=== PATIENT | female | born 1950 | race Caucasian/White ===

== ENCOUNTER 2016-05-28 16:39 | Inpatient (IN) | payer OTHER ==
[~2016-05-28] VITALS: Ht 147.3 cm; Wt 41.0 kg
[~2016-05-28 16:39] MED LIST: ACET1TAB40 PO; ALEN70TA30 PO; CEPH-443 PO; SERT25TA83 PO; TRAM50TA2 PO
[2016-05-28 16:42] VITALS: Ht 147.3 cm; Wt 41.0 kg
[2016-05-28] MEDS ORDERED: SOD CHLORIDE 0.9% 500 ML IV STA (18:16)
--- NOTE | 2016-05-28 18:49 | RADRPT ---
PROCEDURE: XR Chest. CLINICAL INDICATION: Chest pain and possible stroke TECHNIQUE: AP Portable chest. COMPARISON: None available FINDINGS: The soft tissues and bones are normal. No focal infiltrates, masses, or effusions are noted. Hyper inflation is present and correlate with reactive airway disease or evidence for obstructive pulmonar y disease. The mediastinum and heart are normal. No pneumothorax is present. IMPRESSION: 1. No radiographic evidence for acute cardiopulmonary disease 2. Hyperinflation and correlate with reactive airway disease or obstructive pulmonary disease. RPTAT: HDC .Lisa Morales MD, MD Date Time Electronically viewed and signed by .Lisa Morales MD, MD on 05/28/2016 18:49 .C/
[2016-05-28 19:09] LABS: ADD UMIC YES; URINE BILIRUBIN (Dip) NEGATIVE (NEGATIVE); URINE BLOOD (Dip) 2+ (NEGATIVE); URINE GLUCOSE (Dip) NEGATIVE (NEGATIVE); URINE KETONES (Dip) NEGATIVE (NEGATIVE); URINE LEUKOCYTE ESTERASE (Dip) TRACE (NEGATIVE); URINE NITRITE (Dip) NEGATIVE (NEGATIVE); URINE TOTAL PROTEIN (Dip) NEGATIVE (NEGATIVE); URINE UROBILINOGEN (Dip) 0.2 E.U./dL (0.1-1.0)
[2016-05-28 19:10] LABS: BASOPHIL # 0.1 10^3/ul (0.0-0.1); EOSINOPHILS # 0.1 10^3/ul (0.0-0.5); EOSINOPHILS % 1.4 % (0.0-7.0); HEMATOCRIT 36.6 % (37.0-47.0); HEMOGLOBIN 12.5 g/dl (12.0-16.0); LYMPHOCYTES # 2.9 10^3/ul (0.8-2.9); LYMPHOCYTES % 42.8 % (15.0-51.0); MEAN CORPUSCULAR HEMOGLOBIN 31.2 pg (29.0-33.0); MEAN CORPUSCULAR HGB CONC 34.3 g/dl (32.0-37.0); MEAN CORPUSCULAR VOLUME 91.1 fl (82.0-101.0); MEAN PLATELET VOLUME 7.2 fl (7.4-10.4); MONOCYTE # 0.8 10^3/ul (0.3-0.9); MONOCYTES % 11.8 % (0.0-11.0); NEUTROPHIL # 2.9 10^3/ul (1.6-7.5); PLATELET COUNT 333 10^3/UL (140-440); RED BLOOD COUNT 4.02 10^6/ul (4.20-5.40); RED CELL DISTRIBUTION WIDTH 13.4 % (11.5-14.5); UNCORRECTED WBC 6.7 10^3/ul (4.8-10.8); WHITE BLOOD COUNT 6.7 10^3/ul (4.8-10.8)
--- NOTE | 2016-05-28 19:14 | ERA ---
ER Documentation Chief Complaint Date/Time DATE: 05/28/16 TIME: 19:12 Chief Complaint ROTH X 3 DAYS HPI 65-year-old female who presents the emergency room with a headache. The patient describes headache for approximately 48 hours. The patient states that she was in her car 2 days ago. She had a sudden onset of severe headache that was bandlike through the majority of her head. She noted at that time complete loss of vision to bilateral eyes. She also had some nausea. She thinks that she may have passed out because she lost a filling. She denies any incontinence. She denies any postictal state. She now has persistent headache that is 4-10 currently. She was seen by her primary care physician who sent her to the emergency room. She denies any chest pain or neck pain, no fevers or chills, no rash, no jaw claudication. She still describes some haziness to her vision but denies any persistent vision loss. ROS All systems reviewed and are negative except as per history of present illness. Medications Home Meds Active Scripts Acetaminophen-Codeine* (Acetaminophen-Cod #3*) 300-30 Mg Tab, 1 TAB PO Q4H Y for PAIN, #14 TAB Prov:KYLIE DE JESUS MD 12/15/15 Cephalexin* (Keflex*) 500 Mg Capsule, 500 MG PO QID for 5 Days, CAP Prov:KYLIE DE JESUS MD 12/15/15 Reported Medications Alendronate Sodium* (Fosamax*) 70 Mg Tablet, 70 MG PO WEEKLY, #4 08/08/15 Sertraline Hcl* (Sertraline Hcl*) 25 Mg Tablet, 25 MG PO DAILY, #30 08/08/15 Tramadol HCl (Tramadol HCl) 50 Mg Tablet, 50 MG PO BID, #60 08/08/15 Allergies Allergies: Coded Allergies: Penicillins (Verified Allergy, Unknown, 08/07/15) PMhx/Soc Medical and Surgical Hx: pt denies Medical Hx History of Surgery: Yes (CSECTION X 4) Anesthesia Reaction: No Hx Neurological Disorder: No Hx Respiratory Disorders: No Hx Cardiac Disorders: No Hx Psychiatric Problems: No Hx Miscellaneous Medical Probl: No Hx Alcohol Use: No Hx Substance Use: No Hx Tobacco Use: No Physical Exam Vitals Vital Signs Date Time Temp Pulse Resp B/P Pulse Ox O2 Delivery O2 Flow Rate FiO2 1/13/17 21:10 98.7 83 20 183/82 97 Room Air 05/28/16 16:42 98.1 67 18 159/66 99 Physical Exam General: Well developed, well nourished, no acute distress Head: Normocephalic, atraumatic. Eyes: Pupils equally reactive, EOM intact, no field cuts ENT: Moist mucous membranes Neck: Supple, no lymphadenopathy Respiratory: Lungs clear bilaterally, no distress Cardiovascular: RRR, no murmurs, rubs, or gallops Abdominal: Soft, non-tender, non-distended, no peritoneal signs : Deferred MSK: No edema, no unilateral swelling, 5/5 strength Neurologic: Alert and oriented, moving all extremities, normal speech, no focal weakness, no cerebellar signs, no meningismus, normal rapid alternating movements Skin: No rash Psych: Normal mood Result Diagram: 05/28/165 05/28/16 185 Results 24 hrs Laboratory Tests Test 05/28/16 18:55 05/28/16 19:02 Activated Partial Thromboplast Time 32.5Sec Anion Gap 17 Basophils # 0.110^3/ul Basophils % 1.0% Blood Morphology Comment Blood Urea Nitrogen 19mg/dl Calcium Level 9.2mg/dl Carbon Dioxide Level 29mmol/L Chloride Level 100mmol/L Creatinine 0.92mg/dl Eosinophils # 0.110^3/ul Eosinophils % 1.4% Erythrocyte Sedimentation Rate 27mm/Hr Glucose Level 86mg/dl Hematocrit 36.6% Hemoglobin 12.5g/dl Hemoglobin A1c 5.2% INR International Normalized Ratio 0.99 Lymphocytes # 2.910^3/ul Lymphocytes % 42.8% Mean Corpuscular Hemoglobin 31.2pg Mean Corpuscular Hemoglobin Concent 34.3g/dl Mean Corpuscular Volume 91.1fl Mean Platelet Volume 7.2fl Monocytes # 0.810^3/ul Monocytes % 11.8% Neutrophils # 2.910^3/ul Neutrophils % 43.0% Nucleated Red Blood Cells # 0.010^3/ul Nucleated Red Blood Cells % 0.0/100WBC Platelet Count 27037^3/UL Potassium Level 3.7mmol/L Prothrombin Time 13.1Sec Prothrombin Time Ratio 1.0 Red Blood Count 4.0210^6/ul Red Cell Distribution Width 13.4% Sodium Level 142mmol/L Troponin I < 0.012ng/ml Urine Amphetamines Screen Negative Urine Bacteria FEW Urine Barbiturates Negative Urine Benzodiazepines Screen Negative Urine Bilirubin NEGATIVE Urine Cannabinoids Negative Urine Clarity HAZY Urine Cocaine Screen Negative Urine Color YELLOW Urine Glucose NEGATIVE% Urine Hemoglobin 2+ Urine Ketones NEGATIVE Urine Leukocyte Esterase TRACE Urine Microscopic RBC 25-50/HPF Urine Microscopic WBC 5-10/HPF Urine Mucus MANY Urine Nitrite NEGATIVE Urine Opiates Screen Negative Urine Specific [place] >=1.030 Urine Squamous Epithelial Cells FEW Urine Total Protein NEGATIVE Urine Urobilinogen 0.2 E.U./dL Urine pH 5.5 White Blood Count 6.710^3/ul Bedside Glucose 90mg/dL Current Medications Medications (Trade) Dose Ordered Sig/Sabine Route PRN Reason Start Time Stop Time Status Last Admin Dose Admin Sodium Chloride (NS) 500 ml @ 500 mls/hr Q1H STAT IV 05/28/16 18:16 05/28/16 19:15 DC 05/28/16 18:59 Morphine Sulfate (morphine) 4 mg ONCE STAT IV 05/28/16 19:17 05/28/16 19:18 DC 05/28/16 19:33 Ondansetron HCl (Zofran Inj) 4 mg ONCE STAT IV 05/28/16 19:17 05/28/16 19:18 DC 05/28/16 19:33 IV Flush 10 ml 10 ml STK-MED ONCE .ROUTE 05/28/16 20:01 05/28/16 20:02 DC 05/28/16 20:17 Sodium Chloride 100 ml @ ud STK-MED ONCE .ROUTE 05/28/16 20:01 05/28/16 20:02 DC 05/28/16 20:17 Iohexol (Omnipaque) 100 ml @ ud STK-MED ONCE .ROUTE 05/28/16 20:01 05/28/16 20:02 DC 05/28/16 20:17 Ondansetron HCl (Zofran Inj) 4 mg ER BRIDGE PRN IV NAUSEA AND/OR VOMITING 05/28/16 22:30 05/29/16 22:29 Acetaminophen 650 mg 650 mg ER BRIDGE PRN PO MILD PAIN/FEVER 05/28/16 22:30 05/29/16 22:29 Sodium Chloride (NS) 1,000 ml @ 75 mls/hr [id number] IV 05/28/16 22:07 UNV IV Flush (NS 3 ml) 3 ml PER PROTOCOL IV 05/28/16 22:30 UNV Lorazepam (Ativan) 0.5 mg Q6H PRN IV ANXIETY 05/28/16 22:30 UNV Ondansetron HCl (Zofran Inj) 4 mg Q6H PRN IV NAUSEA AND/OR VOMITING 05/28/16 22:30 UNV Nitroglycerin (Nitroglycerin (Sl Tab) 0.4 Mg) 1 tab Q5M PRN SL CHEST PAIN 05/28/16 22:30 UNV Acetaminophen (Tylenol Tab) 650 mg Q6H PRN PO PAIN LEVEL 1-3 OR FEVER 05/28/16 22:30 UNV Morphine Sulfate (morphine) 2 mg Q4H PRN IV PAIN LEVEL 7-10 05/28/16 22:30 UNV Docusate Sodium (Colace) 100 mg Q12H PRN PO CONSTIPATION 05/28/16 22:30 UNV Famotidine (Pepcid Iv) 20 mg Q12 IV 05/29/16 09:00 UNV Alendronate Sodium (Fosamax) 70 mg Q7D PO 05/28/16 22:30 UNV Sertraline HCl (Zoloft) 25 mg DAILY PO 05/29/16 09:00 UNV Hydralazine HCl (Apresoline) 10 mg Q6H PRN IV sbp > 160 05/28/16 22:30 UNV Labetalol HCl (Labetalol) 10 mg Q6H PRN IV sbp > 160 05/28/16 22:30 UNV Procedures/MDM EKG, MONITORS, & DIAGNOSTIC IMAGING: EKG: I reviewed and interpreted a 12-lead EKG. Rhythm: Normal sinus rhythm Ectopy: None Intervals: No abnormalities ST segments: No elevations or depressions T waves: No contiguous inversions Chest x-ray: I reviewed and interpreted a 1 view of the chest Mediastinum: No enlargement Cardiac silhouette: No cardiomegaly Airspace: Clear lung luevano bilaterally without evidence of pneumothorax Bones: No evidence of fracture CT brain: No acute intracranial process CTA head and neck: No aneurysm or dissection PROCEDURES: Lumbar Puncture Note: Indication: Rule out subarachnoid hemorrhage Needle: 18-gauge Position: Left lateral decubitus Location: L2/3 space Number of attempts: 1 CSF volume: 6 cc Bedside informed consent was provided to the patient describing the risks, benefits, alternatives of the procedure. This includes infection, bleeding, headache. The patient provided verbal consent a document was signed and placed in the chart. Sterile procedure was observed during the entire course of the procedure. The patient was placed in the position noted above and a needle was inserted into the space noted above. There was return of clear, non-cloudy cerebrospinal fluid. The needle was then removed intact. The patient tolerated the procedure well and there were no complications. A clean sterile bandage was applied to the lumbar puncture site. LAB INTERPRETATION: No leukocytosis, no evidence of electrolyte disturbance MEDICAL DECISION MAKING: The patient's headache has concerning elements including sudden onset, vision loss and possible syncope. These constellation of symptoms could represent subarachnoid hemorrhage versus stroke. The patient will benefit from CT imaging of the brain, CTA of the head and neck. I would also consider possible lumbar puncture given the patient's concerning story if these imaging tests are unrevealing. The patient will benefit from IV fluids and pain control medication. The patient's symptoms do not seem to be consistent with giant cell arteritis given sudden onset of symptoms, no jaw claudication. Vision loss seemed to be transient. ESR will be sent. ER COURSE: The patient's headache is improved with pain medication and laboratory testing. ESR is negative. CT imaging of the head and vessels are also negative. The patient's pain has improved. Her blood pressure has also remained stable. I had a prolonged conversation regarding lumbar puncture and the risks of subarachnoid hemorrhage. I used an assistant clinical nurse manager. We decided to perform a lumbar puncture as this is the gold standard despite the normal CT and CTA. The patient's CSF studies are pending at this time but the CSF was clear and non -cloudy. This is not consistent with subarachnoid hemorrhage. The patient will be admitted for MRI imaging given possibility of TIA, vision loss and headache. Also consider possible PRES versus hypertensive urgency. I kept the patient and/or family informed of laboratory and diagnostic imaging results throughout the emergency room course. DISPOSITION PLAN: Telemetry admission CONSULTATION: Accepting care team and consultations: I discussed the current laboratory data, diagnostic imaging and emergency care provided. Admitting team: Dr. Dawson Admitting team indication: Insurance directed CSF studies pending and to be followed by admitting team. Departure Diagnosis: Primary Impression: Headache Qualified Code: R51 - Acute intractable headache, unspecified headache type Additional Impression: Hypertensive urgency Condition: Stable DAMIAN GRUBBS MD May 28, 2016 19:14
[2016-05-28 19:16] LABS: CHLORIDE 100 mmol/L (97-110); INR 0.99; POTASSIUM 3.7 mmol/L (3.5-5.1); PROTIME 13.1 Sec (12.2-14.2); SODIUM 142 mmol/L (135-144)
[2016-05-28 19:17] LABS: CONDITION 1; PARTIAL THROMBOPLASTIN TIME 32.5 Sec (25.0-35.0)
[2016-05-28] MEDS ORDERED: morphine 4 MG/ML VIAL IV STA (19:17)
[2016-05-28] MEDS ORDERED: ONDANSETRON 4 MG INJ IV STA (19:17)
[2016-05-28 19:18] LABS: CREATININE 0.92 mg/dl (0.44-1.00)
[2016-05-28 19:19] LABS: ANION GAP 17 (8-16); BLOOD UREA NITROGEN 19 mg/dl (7-20); CALCIUM 9.2 mg/dl (8.4-10.2); CARBON DIOXIDE 29 mmol/L (21-31); GLUCOSE 86 mg/dl (70-220)
[2016-05-28 19:38] LABS: URINE COLOR YELLOW (YELLOW)
[2016-05-28 19:42] LABS: BACTERIA,URINE FEW; MUCUS,URINE MANY; SQUAMOUS EPITHELIAL CELL,UR FEW; TROPONIN-I < 0.012 ng/ml (0.00-0.12); URINE RBCS 25-50 /HPF (0)
[2016-05-28 19:59] LABS: BARBITURATES Negative (NEGATIVE)
[2016-05-28 20:00] LABS: CANNABINOIDS Negative (NEGATIVE)
[2016-05-28] MEDS ORDERED: SOD CHLORIDE 0.9% 100 ML ONE (20:01)
[2016-05-28] MEDS ORDERED: IOHEXOL 100 ML ONE (20:01)
[2016-05-28 20:05] LABS: BENZODIAZEPINES Negative (NEGATIVE); COCAINE Negative (NEGATIVE); OPIATES Negative (NEGATIVE)
--- NOTE | 2016-05-28 20:17 | RADRPT ---
PROCEDURE: CT brain without IV contrast. CLINICAL INDICATION: Weakness. TECHNIQUE: CT examination of the brain was performed on a 64-slice multidetector scanner. The pat ient was examined without IV contrast. Sagittal and coronal reformatted images were made. The imag es were reviewed on a PACS workstation. Radiation dose: Total CTDIvol: 45 mGY. Total DLP: 720 mGy-cm. COMPARISON: None available. FINDINGS: The ventricles and cerebral sulci are normal in size and morphology for this patient's age. The gra y/white matter differentiation is well preserved. There is no other abnormal intra-axial high, low density lesion, suggesting tumor, infarct , bleeding, av malformation or inflammatory mass. No subdural or epidural hematoma. The visualized paranasal sinuses and mastoid air cells are clear. The orbits are unremarkable. The calvarium is intact. No scalp abnormalities are seen. IMPRESSION: 1. Unremarkable CT brain without IV contrast. RPTAT: GG .Luis Carlos Williamson MD, MD Date Time Electronically viewed and signed by .Luis Carlos Williamson MD, on 05/28/2016 20:16 .Y/
--- NOTE | 2016-05-28 20:32 | RADRPT ---
PROCEDURE: CTA Head and Neck. CLINICAL INDICATION: Stroke, focal neurologic deficit TECHNIQUE: Continues axial 0.63 mm sections were obtained through the head and neck with the use o f 80 cc of Omnipaque 350 nonionic intravenous contrast material. Coronal and sagittal as well as ma ximal intensity projection reformations were obtained. 3-D re-formations were performed as well. Th e images were reviewed on a PACS workstation. The calculated radiation dose measures 364 mGy centime ters. The CTDI measures 12 mGy COMPARISON: No prior studies are available for comparison. FINDINGS: NECK: The aortic arch is normal appearance. The origins of the great vessels are intact. The right brachi ocephalic artery is within normal limits. The right common carotid artery is unremarkable. The right carotid bifurcation appears normally pat ent. The remainder of the right internal carotid artery is unremarkable, without focal stenosis or dilatation. The left common carotid artery is unremarkable. The left carotid bifurcation appears normally paten t. The remainder of the left internal carotid artery is unremarkable, without focal stenosis or dil atation. The bilateral vertebral arteries are identified, without stenosis or occlusion. There are facet degenerative changes through the cervical spine. There is a mild to moderate appeari ng disk protrusion at C6-C7, approximately 3 mm HEAD: The petrous right internal carotid artery appears normally patent. The cavernous and supraclinoid r ight internal carotid artery segments appear intact, without focal stenosis or occlusion. The right anterior and middle cerebral arteries are unremarkable. The petrous left internal carotid artery appears normally patent. The cavernous and supraclinoid le ft internal carotid artery segments appear intact, without focal stenosis or occlusion. The left an terior and middle cerebral arteries are unremarkable. The anterior communicating artery is unremarkable. The bilateral posterior communicating arteries a re identified and within normal limits. There is no evidence of aneurysm or vascular malformation i nvolving the anterior circulation. The intracranial vertebral arteries appear unremarkable. The left vertebral artery is mildly domina nt. The basilar artery appears within normal limits. The bilateral anterior inferior and posterior inferior cerebellar arteries appear the patent. The superior cerebellar arteries are unremarkable. Bilateral posterior cerebral arteries are normally patent. There is no aneurysm or vascular malformation involving the posterior circulation.. IMPRESSION: Unremarkable CT angiogram of the head and neck vasculature. No focal stenosis or occlusion is identi fied. Cervical spine degenerative facet changes, and a mild to moderate appearing disk protrusion at C6-C7, approximately 3 mm. Measurements of the cervical internal carotid artery stenosis were peformed according to NASCET jass escobar. RPTAT: HBST .Franklin Buchanan MD, Date Time Electronically viewed and signed by .Franklin Buchanan MD, MD on 05/28/2016 20:31 .T/
--- NOTE | 2016-05-28 20:38 | RADRPT ---
PROCEDURE: CTA Head and Neck. CLINICAL INDICATION: Stroke, focal neurologic deficit TECHNIQUE: Continues axial 0.63 mm sections were obtained through the head and neck with the use of 80 cc of Omnipaque 350 nonionic intravenous contrast material. Coronal and sagittal as well as maxim al intensity projection reformations were obtained. 3-D re-formations were performed as well. The im ages were reviewed on a PACS workstation. The calculated radiation dose measures 364 mGy centimeters . The CTDI measures 12 mGy COMPARISON: No prior studies are available for comparison. FINDINGS: NECK: The aortic arch is normal appearance. The origins of the great vessels are intact. The right brachio cephalic artery is within normal limits. The right common carotid artery is unremarkable. The right carotid bifurcation appears normally zurita nt. The remainder of the right internal carotid artery is unremarkable, without focal stenosis or di latation. The left common carotid artery is unremarkable. The left carotid bifurcation appears normally patent . The remainder of the left internal carotid artery is unremarkable, without focal stenosis or dilat ation. The bilateral vertebral arteries are identified, without stenosis or occlusion. There are facet degenerative changes through the cervical spine. There is a mild to moderate appeari ng disk protrusion at C6-C7, approximately 3 mm HEAD: The petrous right internal carotid artery appears normally patent. The cavernous and supraclinoid ri ght internal carotid artery segments appear intact, without focal stenosis or occlusion. The right a nterior and middle cerebral arteries are unremarkable. The petrous left internal carotid artery appears normally patent. The cavernous and supraclinoid lef t internal carotid artery segments appear intact, without focal stenosis or occlusion. The left ante rior and middle cerebral arteries are unremarkable. The anterior communicating artery is unremarkable. The bilateral posterior communicating arteries ar e identified and within normal limits. There is no evidence of aneurysm or vascular malformation inv olving the anterior circulation. The intracranial vertebral arteries appear unremarkable. The left vertebral artery is mildly dominan t. The basilar artery appears within normal limits. The bilateral anterior inferior and posterior in ferior cerebellar arteries appear the patent. The superior cerebellar arteries are unremarkable. Kai ateral posterior cerebral arteries are normally patent. There is no aneurysm or vascular malformation involving the posterior circulation.. IMPRESSION: Unremarkable CT angiogram of the head and neck vasculature. No focal stenosis or occlusion is identi fied. Cervical spine degenerative facet changes, and a mild to moderate appearing disk protrusion at C6-C7, approximately 3 mm. Measurements of the cervical internal carotid artery stenosis were peformed according to NASCET jass escobar. RPTAT: HBST Call report was made to Dr. Soares .Franklin Buchanan MD, Date Time Electronically viewed and signed by .Franklin Buchanan MD, on 05/28/2016 20:37 .T/
[2016-05-28 21:44] LABS: # OF CELLS COUNTED 100
[2016-05-28] MEDS ORDERED: SOD CHLORIDE 0.9% 1,000 ML IV SCH (22:07)
[2016-05-28 22:11] LABS: GLUCOSE,CSF 41 mg/dl (50-80)
[2016-05-28 22:19] LABS: CSF COLOR COLORLESS; CSF VOLUME 4.6 ml
[2016-05-28 22:23] LABS: %CREANATED RBC CSF 0 %; CSF#TUBES REC'D 4
[2016-05-28 22:24] LABS: CSF#TUBE COUNT TUBE#1
[2016-05-28 22:25] LABS: %CREANATED RBC CSF 0 %; CSF COLOR COLORLESS; CSF VOLUME 4.6 ml; CSF#TUBE COUNT TUBE#4; CSF#TUBES REC'D 4
[2016-05-28] MEDS ORDERED: NITROGLYCERIN (SL) 0.4 MG TAB SL PRN (22:30)
[2016-05-28] MEDS ORDERED: ACETAMINOPHEN 325 MG TAB PO PRN ×2 (22:30)
[2016-05-28] MEDS ORDERED: ONDANSETRON 4 MG INJ IV PRN ×2 (22:30)
[2016-05-28] MEDS ORDERED: ALENDRONATE 70 MG TAB PO SCH (22:30)
[2016-05-28] MEDS ORDERED: LABETALOL HCL 20MG INJ IV PRN (22:30)
[2016-05-28] MEDS ORDERED: NACL 0.9% 3 ML SYG IV SCH (22:30)
[2016-05-28] MEDS ORDERED: DOCUSATE SODIUM 100 MG CAP PO PRN (22:30)
[2016-05-28] MEDS ORDERED: LORAZEPAM 2 MG INJ IV PRN (22:30)
[2016-05-28] MEDS ORDERED: hydrALAzine 20 MG INJ IV PRN (22:30)
--- NOTE | 2016-05-28 23:10 | HP ---
Date/Time of Note Date/Time of Note DATE: 05/28/16 TIME: 22:51 Assessment/Plan VTE Prophylaxis VTE Prophylaxis Intervention: SCD's Lines/Catheters IV [facility]from [facility] Saline [facility] Assessment/Plan Assessment/Plan 65 yo female with a past medical history of questionable hypertension who complains of headache for the past three days. 1. Hypertensive urgency - possible CVA - will admit the patient telemetry, cycle cardiac markers, check TSH/Mag, MRI brain, consult neurology, PT/OT/ST, fall precautions, neurovascular checks 2. GI ppx - pepcid 3. DVT ppx - scds answered all of her questions. as per clinical course. this history and physical took greater then 45 minutes to complete HPI/ROS Admit Date/Time Admit Date/Time 05/28/2016, 10:51 pm Hx of Present Illness 65 yo female with a past medical history of questionable hypertension who complains of headache for the past three days. She states that headache is diffuse, all over her scalp, throbbing, no alleviating or aggravating factors, no aura, or phonophobia/photophobia, but does have some blurriness in vision. She had nausea, no vomiting, 3 episodes of diarrhea non bloody in nature, with fevers/chills, dizziness. Otherwise no sick contacts, recent travel, trauma, loss of consciousness, or other constitutional symptoms. ER course: morphine, IVF ROS 14 point review of systems completed, please refer to HPI for any positive findings PMH/Family/Social Past Medical History Medical History: hypertension Past Surgical History cyst on scalp Family History Significant Family History: vascular disease (CVA father age 74) Social History Alcohol Use: occasionally Smoking Status: Former smoker (1/2 ppd 40 years, quit 1 year ago) Drug Use: none Exam/Review of Systems Vital Signs Vitals Vital Signs Date Time Temp Pulse Resp B/P Pulse Ox O2 Delivery O2 Flow Rate FiO2 05/28/16 21:10 98.7 83 20 183/82 97 Room Air Exam Exam GEN: mild distress 2/2 headache, AAOx4 HEENT: NC/AT, PERRLA, EOMI, no pharyngeal erythema, no tonsillar exudates, no lymphadenopathy, no JVD, no carotid bruits NECK: supple, no thyromegaly THORAX: symmetrical, no obvious deformities CV: S1S2, RRR, no M/G/R Lungs: CTAB no W/C/R/R Abd: soft, NT/ND, +BS, no rebound, no guarding, neg HSM EXT: no edema, no ecchymosis, no clubbing, FROM, +5/5 upper and lower extremities Neuro: CN II-XII grossly intact, no focal deficits, DTR's 2+ equal and symmetrical Psych: good mentation, alert and oriented, good mood and affect Skin: C/D/I Labs Result Diagram: 05/28/16185405/28/161854 Medications Medications Current Medications Sodium Chloride (NS) 1,000 ml @ 75 mls/hr [id number] IV ; Start 05/28/16 at 22:07 Lorazepam (Ativan) 0.5 mg Q6H PRN IV ANXIETY; Start 05/28/16 at 22:30 Ondansetron HCl (Zofran Inj) 4 mg Q6H PRN IV NAUSEA AND/OR VOMITING; Start at 22:30 Nitroglycerin (Nitroglycerin (Sl Tab) 0.4 Mg) 1 tab Q5M PRN SL CHEST PAIN; Start 05/28/16 at 22:30 Acetaminophen (Tylenol Tab) 650 mg Q6H PRN PO PAIN LEVEL 1-3 OR FEVER; Start at 22:30 Morphine Sulfate (morphine) 2 mg Q4H PRN IV PAIN LEVEL 7-10; Start 05/28/16 at 22:30 Docusate Sodium (Colace) 100 mg Q12H PRN PO CONSTIPATION; Start 05/28/16 at 22: 30 Famotidine (Pepcid Iv) 20 mg Q24H IV ; Start 05/29/16 at 09:00 Alendronate Sodium (Fosamax) 70 mg Q7D PO ; Start 05/28/16 at 22:30; Status UNV Sertraline HCl (Zoloft) 25 mg DAILY PO ; Start 05/29/16 at 09:00 Hydralazine HCl (Apresoline) 10 mg Q6H PRN IV sbp > 160; Start 05/28/16 at 22: 30 Labetalol HCl (Labetalol) 10 mg Q6H PRN IV sbp > 160; Start 05/28/16 at 22:[address] brain IMPRESSION: 1. Unremarkable CT brain without IV contrast. CXR IMPRESSION: 1. No radiographic evidence for acute cardiopulmonary disease 2. Hyperinflation and correlate with reactive airway disease or obstructive pulmonary disease. CTA brain IMPRESSION: Unremarkable CT angiogram of the head and neck vasculature. No focal stenosis or occlusion is identified. Cervical spine degenerative facet changes, and a mild to moderate appearing disk protrusion at C6-C7, approximately 3 mm. Measurements of the cervical internal carotid artery stenosis were peformed according to NASCET criteria. Neck CTA IMPRESSION: Unremarkable CT angiogram of the head and neck vasculature. No focal stenosis or occlusion is identified. Cervical spine degenerative facet changes, and a mild to moderate appearing disk protrusion at C6-C7, approximately 3 mm. Measurements of the cervical internal carotid artery stenosis were peformed according to NASCET criteria. ANGUS WORTHY MD May 28, 2016 23:03
[2016-05-28 23:14] LABS: CREATINE KINASE 95 IU/L (23-200)
[2016-05-28 23:15] LABS: MAGNESIUM 1.9 mg/dl (1.7-2.5)
[2016-05-28 23:25] LABS: CK-MB 0.88 ng/ml (0.0-2.4)
[2016-05-28] MEDS: morphine 2 MG INJ IV PRN (23:25)
[2016-05-28 23:29] LABS: TROPONIN-I < 0.010 ng/ml (0.00-0.12)
[2016-05-28 23:47] LABS: THYROID STIMULATING HORMONE 4.3 MIU/L (0.465-4.680)
[2016-05-29 06:17] LABS: BASOPHIL # 0.1 10^3/ul (0.0-0.1); EOSINOPHILS # 0.1 10^3/ul (0.0-0.5); EOSINOPHILS % 1.9 % (0.0-7.0); HEMATOCRIT 34.2 % (37.0-47.0); HEMOGLOBIN 11.5 g/dl (12.0-16.0); LYMPHOCYTES # 2.4 10^3/ul (0.8-2.9); LYMPHOCYTES % 42.8 % (15.0-51.0); MEAN CORPUSCULAR HEMOGLOBIN 30.5 pg (29.0-33.0); MEAN CORPUSCULAR HGB CONC 33.8 g/dl (32.0-37.0); MEAN CORPUSCULAR VOLUME 90.4 fl (82.0-101.0); MEAN PLATELET VOLUME 7.2 fl (7.4-10.4); MONOCYTE # 0.6 10^3/ul (0.3-0.9); MONOCYTES % 11.1 % (0.0-11.0); NEUTROPHIL # 2.4 10^3/ul (1.6-7.5); NEUTROPHILS % 43.2 % (39.0-77.0); PLATELET COUNT 321 10^3/UL (140-440); RED BLOOD COUNT 3.78 10^6/ul (4.20-5.40); RED CELL DISTRIBUTION WIDTH 13.2 % (11.5-14.5); UNCORRECTED WBC 5.6 10^3/ul (4.8-10.8); WHITE BLOOD COUNT 5.6 10^3/ul (4.8-10.8)
[2016-05-29 06:23] LABS: CONDITION 1
[2016-05-29 06:25] LABS: POTASSIUM 4.1 mmol/L (3.5-5.1)
[2016-05-29 06:26] LABS: CREATINE KINASE 84 IU/L (23-200)
[2016-05-29 06:27] LABS: CREATININE 0.8 mg/dl (0.44-1.00)
[2016-05-29 06:28] LABS: CALCIUM 8.3 mg/dl (8.4-10.2)
[2016-05-29 06:35] LABS: CK-MB 0.83 ng/ml (0.0-2.4)
[2016-05-29 06:41] LABS: TROPONIN-I < 0.010 ng/ml (0.00-0.12)
[2016-05-29] MEDS ORDERED: SERTRALINE 50 MG TAB PO SCH (09:00)
[2016-05-29] MEDS ORDERED: FAMOTIDINE 20 MG INJ IV SCH (09:00)
[2016-05-29] MEDS: morphine 2 MG INJ IV PRN (09:03)
--- NOTE | 2016-05-29 13:52 | EN ---
Date/Time of Note Date/Time of Note DATE: 05/29/16 TIME: 13:51 Event Note Medicine Medicine Event Note Stable overnight in ER No headache Vitals stable Exam unremarkable c/o dysuria LP and CT head unremarkable. Probable UTI For cipro f/u PMD 1 week. DAPHNE SOFIA MD, [facility] May 29, 2016 13:52
[2016-05-29] MEDS ORDERED: CIPR500T4 PO (14:02)
--- NOTE | 2016-05-29 14:03 | EN ---
Date/Time of Note Date/Time of Note DATE: 05/29/16 TIME: 14:[address] May, has seen the patient and told me the patient stable for discharge and asked me to print out discharge instructions and a prescription for Cipro for the patient because he does not have a prescription pad I did not see this patient or have any involvement in this patient's care PALOMO AKHTAR DO May 29, 2016 14:03
--- NOTE | 2016-05-29 14:19 | RADRPT ---
Echocardiogram Report Patient Name: HAZEL EGN Gender: Female Date: 1950 Study Date: 29-May-2016 Plastic Sewer: Nas [facility] Location: [facility] Ref. Physician: ANGUS WORTHY Quality: Adequate Procedures: Transthoracic echocardiogram with complete 2D, M-Mode, and doppler examination. Indications: Cerebrovascular Accident. 2D/M Mode Doppler Measurement Value Normal Ranges Measurement Value Normal Ranges LVIDd 2D 4.0 3.5 - 5.6 cm AV Peak Lenny 1.0 m/sec LVIDs 2D 2.6 2.1 - 4.1 cm AV Peak PG 4.0 mmHg FS 2D 35.3 % AI Peak PG 14.0 mmHg LVPWd 2D 0.9 0.6 - 1.1 cm AI Peak Lenny 1.9 m/sec IVSd 2D 0.8 0.6 - 1.1 cm AI PHT 437.0 msec IVS/LVPW 2D 0.9 LVOT Peak Lenny 0.6 m/sec AoR Diam 2D 2.4 2.0 - 3.7 cm LVOT Peak PG 1.0 mmHg LA/Ao 2D 1 0 - 1 MV E Peak Lenny 0.8 m/sec EDV 2D 63.5 cm3 MV A Peak Lenny 0.9 m/sec ESV 2D 17.2 cm3 MV E/A 0.9 LA Dimen 2D 2.6 2.3 - 4.0 cm MV Decel Time 250 msec MV E/A 0.9 TR Peak Lneny 2.5 m/sec TR Peak PG 26.0 mmHg Findings Left Ventricle: Normal left ventricular systolic function. Normal left ventricular cavity size. Normal left ventricular wall thickness. Ejection fraction is visually estimated at 5560 %. Tissue Doppler/Mitral Doppler indices are consistent with impaired relaxation (Stage I diastolic dysfunction). Right Ventricle: Normal right ventricular size. Normal right ventricular systolic function. Left Atrium: The left atrium is normal in size. Right Atrium: The right atrium is normal in size. Mitral Valve: Mild mitral leaflet calcification. Mild mitral valve regurgitation. Aortic Valve: Normal trileaflet aortic valve structure. Mild aortic valve regurgitation. Tricuspid Valve: Estimated peak PA systolic pressure 29 mmHg. There is mild tricuspid regurgitation. Pulmonic Valve: Pulmonic valve not well visualized. There is trace pulmonic regurgitation. Pericardium: Normal pericardium with no significant pericardial effusion. Aorta: Normal aortic root. IVC: Normal size and normal respiratory collapse consistent with normal right atrial pressure. Conclusions 1.Normal left ventricular systolic function. Normal left ventricular cavity size. Normal left ventricular wall thickness. Ejection fraction is visually estimated at 55-60 %. Tissue Doppler/Mitral Doppler indices are consistent with impaired relaxation (Stage I diastolic dysfunction). 2.Mild mitral leaflet calcification. Mild mitral valve regurgitation. 3.Normal trileaflet aortic valve structure. Mild aortic valve regurgitation. 4.Estimated peak PA systolic pressure 29 mmHg. There is mild tricuspid regurgitation. 5.Pulmonic valve not well visualized. There is trace pulmonic regurgitation. Electronically Signed By: Russell Schmidt 29-May-2016 14:17:53 -0800 Patient Name: HAZEL ENG Study Date: 29-May-[id number]
[2016-05-29 14:29] VITALS: BP 126/65; PULSE 72; RESP 11; TEMP 98.2
--- NOTE | 2016-05-29 18:03 | DS ---
DATE OF ADMISSION: 05/28/2016 DATE OF DISCHARGE: 05/29/2016 DISCHARGE DIAGNOSIS: Urinary tract infection. HOSPITAL COURSE: In summary, this is a 65-year-old lady who originally presented with headache, malka sea and elevated blood pressure. Gave additional history of flank pain and dysuria. Found to have evidence of a urinary tract infection with bacteria, trace leukocyte esterase, but no significantly elevated WBC. She had a lumbar puncture performed for these headaches and a CT of the head, both of which were unremarkable. Chemistry was also within normal limits with normal renal function. Foll owing morning, patient has been stable with no changes in her vital signs overnight. CT angiogram, of note, was also unremarkable and neck CTA was unremarkable. CONDITION ON DISCHARGE: Stable. FOLLOWUP: Follow up with primary care physician. DISCHARGE DIET: Normal. Dictated By: DAPHNE MULLIGAN/SCOTT Conf#: [id number] DID#: [id number]
== END 2016-05-29 13:54 | disposition home or self-care (01) | DRG 103 ==
LOC: FTE 16:39 → TEL 22:06 → E/R 05-29 14:39
PROVIDERS: ADMIT Student in an Organized Health Care Education/Training Program; ATTEND Student in an Organized Health Care Education/Training Program
PROC: 009U3ZX Drainage of Spinal Canal, Percutaneous Approach, Diagnostic (ICD-10-PCS; principal; 2016-05-28)
DX: R51 Headache (principal); I16.0 Hypertensive urgency; H53.123 Transient visual loss, bilateral; Z87.891 Personal history of nicotine dependence; R30.0 Dysuria
CPT/HCPCS: 36415; 70450; 70496; 70498; 71010; 80048; 80307; 81001; 81003; 82550; 82553; 82945; 82962; 83036; 83735; 84157; 84443; 84484; 85025; 85610; 85651; 85730; 87070; 89050; 93005; 93306; 96374; 96375; 96376; J0360; J2270; J2405; J7030; J7040; Q9967

== ENCOUNTER 2016-06-22 21:21 | Inpatient (IN) | payer OTHER ==
[~2016-06-22] VITALS: Ht 147.3 cm; Wt 42.8 kg
[~2016-06-22 21:21] MED LIST changes: -ACET1TAB40 PO; -CEPH-443 PO; +CIPR500T4 PO
[2016-06-22] MEDS ORDERED: ACETAMINOPHEN 500 MG TAB PO STA (22:40)
[2016-06-22] MEDS ORDERED: [UNRECOGNIZED DRUG - CODE] PO (22:58)
[2016-06-22] MEDS ORDERED: IPRATROPIUM (NEB) 0.5 MG/2.5 ML AMP INH ONE (23:00)
[2016-06-22] MEDS ORDERED: METHYLPREDNISOLONE 125 MG INJ IV ONE (23:00)
[2016-06-22] MEDS ORDERED: ALBUTEROL 0.5% (NEB) 2.5 MG/0.5 ML AMP INH ONE (23:00)
--- NOTE | 2016-06-22 23:19 | RADRPT ---
PROCEDURE: XR Chest. CLINICAL INDICATION: Shortness of breath. TECHNIQUE: Portable AP semi erect view of the chest was obtained. COMPARISON: 05/28/2016 FINDINGS: The cardiomediastinal silhouette is within normal limits. New left lower lobe infiltrate is unable to exclude pneumonia, the right lung is clear. There is no evidence for pleural effusion, pneumotho rax or pulmonary vascular congestion. The osseous structures are intact with no evidence for acute abnormality. RPTAT:HJJR IMPRESSION: New left lower lobe infiltrate compared to 05/28/2016 cannot exclude pneumonia in the proper clinica l setting. Correlation with cough and fever is recommended. Physician Aston Date Time Electronically viewed and signed by Physician Aston on 06/22/2016 23:19 /
[2016-06-22 23:28] LABS: BASOPHILS % 0.2 % (0.0-2.0); EOSINOPHILS % 0.2 % (0.0-7.0); HEMATOCRIT 34.4 % (37.0-47.0); HEMOGLOBIN 11.6 g/dl (12.0-16.0); LYMPHOCYTES # 1.3 10^3/ul (0.8-2.9); LYMPHOCYTES % 9.2 % (15.0-51.0); MEAN CORPUSCULAR HEMOGLOBIN 30.8 pg (29.0-33.0); MEAN CORPUSCULAR HGB CONC 33.8 g/dl (32.0-37.0); MEAN CORPUSCULAR VOLUME 91.1 fl (82.0-101.0); MEAN PLATELET VOLUME 7.5 fl (7.4-10.4); MONOCYTE # 0.8 10^3/ul (0.3-0.9); MONOCYTES % 5.3 % (0.0-11.0); NEUTROPHIL # 12.5 10^3/ul (1.6-7.5); NEUTROPHILS % 85.1 % (39.0-77.0); PLATELET COUNT 323 10^3/UL (140-440); RED BLOOD COUNT 3.78 10^6/ul (4.20-5.40); RED CELL DISTRIBUTION WIDTH 12.8 % (11.5-14.5); UNCORRECTED WBC 14.7 10^3/ul (4.8-10.8); WHITE BLOOD COUNT 14.7 10^3/ul (4.8-10.8)
[2016-06-22 23:29] LABS: ALBUMIN 4.3 g/dl (3.3-4.9); CHLORIDE 96 mmol/L (97-110); POTASSIUM 3.9 mmol/L (3.5-5.1); SODIUM 136 mmol/L (135-144)
[2016-06-22 23:31] LABS: CREATININE 0.74 mg/dl (0.44-1.00)
[2016-06-22 23:32] LABS: ALANINE AMINOTRANSFERASE 18 IU/L (13-69); ALBUMIN/GLOBULIN RATIO 1.13; ALKALINE PHOSPHATASE 97 IU/L (42-121); ANION GAP 19 (8-16); ASPARTATE AMINO TRANSFERASE 35 IU/L (15-46); BILIRUBIN,INDIRECT 0.7 mg/dl (0-1.1); BILIRUBIN,TOTAL 0.7 mg/dl (0.2-1.3); BLOOD UREA NITROGEN 19 mg/dl (7-20); CARBON DIOXIDE 25 mmol/L (21-31); CONDITION 1; GLUCOSE 113 mg/dl (70-220); TOTAL PROTEIN 8.1 g/dl (6.1-8.1)
[2016-06-22 23:40] LABS: B-TYPE NATRIURETIC PEPTIDE 98 PG/ML (0-125)
[2016-06-22] MEDS ORDERED: LEVOFLOXACIN 500MG/D5W (PMX) 100 ML IVPB ONE (23:43)
[2016-06-22 23:48] LABS: TROPONIN-I < 0.012 ng/ml (0.00-0.12)
--- NOTE | 2016-06-23 02:26 | ERA ---
ER Documentation Chief Complaint Date/Time DATE: 06/23/16 TIME: 02:25 Chief Complaint cough x 1 week HPI This is a 65-year-old female comes in with progressively worse cough for 1 week. Cough is mildly productive. Alternating fevers and chills. No nausea no vomiting. No other current complaints. ROS All systems reviewed and are negative except as per history of present illness. Medications Home Meds Reported Medications [id number]-Vpxnvhvuzvymz-GG (Mucinex Fast-Max Cold-Flu) 1 Each Tablet, 2 TAB PO Q12, TAB 06/22/16 Sertraline Hcl* (Sertraline Hcl*) 25 Mg Tablet, 25 MG PO DAILY, #30 08/08/15 Tramadol HCl (Tramadol HCl) 50 Mg Tablet, 50 MG PO BID, #60 08/08/15 Discontinued Reported Medications Alendronate Sodium* (Fosamax*) 70 Mg Tablet, 70 MG PO WEEKLY, #4 08/08/15 Discontinued Scripts Ciprofloxacin Hcl* (Ciprofloxacin Hcl*) 500 Mg Tablet, 500 MG PO BID for 7 Days , TAB Prov:PALOMO AKHTAR DO 05/29/16 Allergies Allergies: Coded Allergies: famotidine (Verified Allergy, Mild, body aches, 06/22/16) Penicillins (Verified Allergy, Unknown, 06/22/16) PMhx/Soc History of Surgery: Yes (CSECTION X 4) Anesthesia Reaction: No Hx Neurological Disorder: No Hx Respiratory Disorders: No Hx Cardiac Disorders: No Hx Psychiatric Problems: No Hx Miscellaneous Medical Probl: Yes (osteoporosis) Hx Alcohol Use: No Hx Substance Use: No Hx Tobacco Use: No Smoking Status: Never smoker Physical Exam Vitals Vital Signs Date Time Temp Pulse Resp B/P Pulse Ox O2 Delivery O2 Flow Rate FiO2 06/22/16 23:22 100 20 98 21 06/22/16 21:23 101.7 122 20 138/79 98 Physical Exam Const: [] Head: Atraumatic Eyes: Normal Conjunctiva ENT: Normal External Ears, Nose and Mouth. Neck: Full range of motion..~ No meningismus. Resp: Clear to auscultation bilaterally Cardio: Regular rate and rhythm, no murmurs Abd: Soft, non tender, non distended. Normal bowel sounds Skin: No petechiae or rashes Back: No midline or flank tenderness Ext: No cyanosis, or edema Neur: Awake and alert Psych: Normal Mood and Affect Result Diagram: 06/22/16224906/22/162249 Results 24 hrs Laboratory Tests Test 06/22/16 22:50 Alanine Aminotransferase (ALT/SGPT) 18IU/L Albumin 4.3g/dl Albumin/Globulin Ratio 1.13 Alkaline Phosphatase 97IU/L Anion Gap 19 Aspartate Amino Transf (AST/SGOT) 35IU/L B-Type Natriuretic Peptide 98PG/ML Basophils # 0.010^3/ul Basophils % 0.2% Blood Urea Nitrogen 19mg/dl Calcium Level 9.0mg/dl Carbon Dioxide Level 25mmol/L Chloride Level 96mmol/L Creatinine 0.74mg/dl Direct Bilirubin 0.00mg/dl Eosinophils # 0.010^3/ul Eosinophils % 0.2% Globulin 3.80g/dl Glucose Level 113mg/dl Hematocrit 34.4% Hemoglobin 11.6g/dl Indirect Bilirubin 0.7mg/dl Lactic Acid Level 1.3mmol/L Lymphocytes # 1.310^3/ul Lymphocytes % 9.2% Mean Corpuscular Hemoglobin 30.8pg Mean Corpuscular Hemoglobin Concent 33.8g/dl Mean Corpuscular Volume 91.1fl Mean Platelet Volume 7.5fl Monocytes # 0.810^3/ul Monocytes % 5.3% Neutrophils # 12.510^3/ul Neutrophils % 85.1% Nucleated Red Blood Cells # 0.010^3/ul Nucleated Red Blood Cells % 0.0/100WBC Platelet Count 45110^3/UL Potassium Level 3.9mmol/L Red Blood Count 3.7810^6/ul Red Cell Distribution Width 12.8% Sodium Level 136mmol/L Total Bilirubin 0.7mg/dl Total Protein 8.1g/dl Troponin I < 0.012ng/ml White Blood Count 14.710^3/ul Current Medications Medications (Trade) Dose Ordered Sig/Sabine Route PRN Reason Start Time Stop Time Status Last Admin Dose Admin Methylprednisolone Sodium Succinate (Solu-Medrol) 125 mg ONCE ONCE IV 06/22/16 23:00 06/22/16 23:01 DC 06/22/16 23:11 Albuterol (Proventil 0.5% (Neb)) 5 mg ONCE ONCE INH 06/22/16 23:00 06/22/16 23:01 DC 06/22/16 23:22 Ipratropium Alexis (Atrovent 0.02% (Neb)) 0.5 mg ONCE ONCE INH 06/22/16 23:00 06/22/16 23:01 DC 06/22/16 23:21 Acetaminophen 1000 mg 1,000 mg ONCE STAT PO 06/22/16 22:40 06/22/16 22:42 DC 06/22/16 23:11 Levofloxacin/ Dextrose (Levaquin 500mg/ D5W 100 ml (Pmx)) 100 ml @ 100 mls/hr ONCE ONCE IVPB 06/22/16 23:43 06/23/16 00:42 DC 06/22/16 23:51 Procedures/MDM Chest X-ray 1V Interpreted by me: Soft Tissue: No acute abnormalities Bones: No acute abnormalities Mediastinum/Cardiac Silhouette/Lungs: Right lower lobe pneumonia EKG: Rate/Rhythm: Normal Sinus Rhythm QRS, ST, T-waves: No changes consistent w/ acute ischemia Impression: No evidence of ischemia or arrhythmia Blood cultures are pending Medical decision makin-year-old female comes in with pneumonia. Patient started on broad-spectrum antibiotics plus cultures. Patient will be admitted to hospitalist. Departure Diagnosis: Primary Impression: Pneumonia Qualified Code: J18.9 - Pneumonia of right lower lobe due to infectious organism Condition: Serious DESTINY MORFIN Jun 23, 2016 02:26
[2016-06-23 02:38] VITALS: TEMP 98.9
[2016-06-23 04:10] VITALS: Ht 147.3 cm; Wt 42.8 kg
--- NOTE | 2016-06-23 04:29 | HP ---
Date/Time of Note Date/Time of Note DATE: 06/23/16 TIME: 04:04 Assessment/Plan VTE Prophylaxis VTE Prophylaxis Intervention: SCD's Assessment/Plan Assessment/Plan 65 yo F who presented with cough and fever managed for 1. Sepsis 2/2 #2 2. Left upper lobe pneumonia 3. Mild COPD exacerbation 4. Previous heavy tobacco use 5. Chronic depression 6. Chronic Osteoporosis 7. Chronic GERD PLAN: Will admit for IV abx / cultures / bronchodilator therapy/ Influenza screen negative Resume home meds Continue to reinforce tobacco cessation Gentle Hydration Serial labs Supportive care PROPHYLAXIS: SCDs / Ranitidine (patient's home med) HPI/ROS Admit Date/Time Admit Date/Time Jun 23, 2016 at 00:48 Hx of Present Illness PRESENTING COMPLAINT: fever, cough HISTORY OF PRESENTING COMPLAINT: Ms. Mcfarlane is a 55-year-old female who presented to the emergency room with fever and cough for the last 10 days. Cough is associated with sputum production that is said to be greenish. Patient has also had fever and chills. She also notes periods of chest pain, denies nausea or vomiting, also has shortness of breath and wheezing. Emergency room evaluation was consistent with the left upper lobe pneumonia as sepsis, and due to patient's clinical status it is felt she will benefit from a short-term course of inpatient care prior to completing her treatment as an outpatient. She is being admitted for further management ROS 12 point review if systems was done and pertinent findings are as noted. PMH/Family/Social Past Medical History * Osteoporosis * depression * chronic anemia Past Surgical History * c/section x4 * scalp cyst removal Family History Significant Family History: no pertinent family hx, other (CVA in father) Social History Alcohol Use: none Smoking Status: Former smoker Drug Use: none Exam/Review of Systems Vital Signs Vitals VS - Last 72 Hours, by Label Date Time Temp Pulse Resp B/P Pulse Ox O2 Delivery O2 Flow Rate FiO2 06/23/16 02:38 98.9 82 22 123/72 98 Room Air 06/22/16 23:22 100 20 98 21 06/22/16 21:23 101.7 122 20 138/79 98 Vital Signs Date Time Temp Pulse Resp B/P Pulse Ox O2 Delivery O2 Flow Rate FiO2 06/23/16 02:38 98.9 82 22 123/72 98 Room Air 06/22/16 23:22 21 Exam Constitutional: alert, frail, oriented Psych: anxiety Eyes: PERRL Neck: non-tender, supple Respiratory: diminished breath sounds, wheezing Cardiovascular: No murmurs/extra sounds, No regular rate and rhythm Gastrointestinal: bowel sounds, non-tender, soft Extremities: No edema Neurological: lethargic, nl mental status Labs Result Diagram: 06/22/16224906/22/16 2250 Medications Medications Current Medications Ranitidine HCl (Zantac) 150 mg BID PO ; Start 06/23/16 at 09:00 Tramadol HCl (Ultram) 50 mg BID PO ; Start 06/23/16 at 09:00 Procedures Procedures Laboratory Tests Test 06/22/16 22:50 06/23/16 02:30 Alanine Aminotransferase (ALT/SGPT) 18IU/L Albumin 4.3g/dl Albumin/Globulin Ratio 1.13 Alkaline Phosphatase 97IU/L Anion Gap 19 Aspartate Amino Transf (AST/SGOT) 35IU/L B-Type Natriuretic Peptide 98PG/ML Basophils # 0.010^3/ul Basophils % 0.2% Blood Urea Nitrogen 19mg/dl Calcium Level 9.0mg/dl Carbon Dioxide Level 25mmol/L Chloride Level 96mmol/L Creatinine 0.74mg/dl Direct Bilirubin 0.00mg/dl Eosinophils # 0.010^3/ul Eosinophils % 0.2% Globulin 3.80g/dl Glucose Level 113mg/dl Hematocrit 34.4% Hemoglobin 11.6g/dl Indirect Bilirubin 0.7mg/dl Lactic Acid Level 1.3mmol/L 1.8mmol/L Lymphocytes # 1.310^3/ul Lymphocytes % 9.2% Mean Corpuscular Hemoglobin 30.8pg Mean Corpuscular Hemoglobin Concent 33.8g/dl Mean Corpuscular Volume 91.1fl Mean Platelet Volume 7.5fl Monocytes # 0.810^3/ul Monocytes % 5.3% Neutrophils # 12.510^3/ul Neutrophils % 85.1% Nucleated Red Blood Cells # 0.010^3/ul Nucleated Red Blood Cells % 0.0/100WBC Platelet Count 33762^3/UL Potassium Level 3.9mmol/L Red Blood Count 3.7810^6/ul Red Cell Distribution Width 12.8% Sodium Level 136mmol/L Total Bilirubin 0.7mg/dl Total Protein 8.1g/dl Troponin I < 0.012ng/ml White Blood Count 14.710^3/ul ER INTERVENTIONS Medications (Trade) Dose Ordered Sig/Sabine Route PRN Reason Start Time Stop Time Status Last Admin Dose Admin Methylprednisolone Sodium Succinate (Solu-Medrol) 125 mg ONCE ONCE IV 06/22/16 23:00 06/22/16 23:01 DC 06/22/16 23:11 125 MG Albuterol (Proventil 0.5% (Neb)) 5 mg ONCE ONCE INH 06/22/16 23:00 06/22/16 23:01 DC 06/22/16 23:22 5 MG Ipratropium Benezett (Atrovent 0.02% (Neb)) 0.5 mg ONCE ONCE INH 06/22/16 23:00 06/22/16 23:01 DC 06/22/16 23:21 0.5 MG Acetaminophen 1000 mg 1,000 mg ONCE STAT PO 06/22/16 22:40 06/22/16 22:42 DC 06/22/16 23:11 1,000 MG Levofloxacin/ Dextrose (Levaquin 500mg/ D5W 100 ml (Pmx)) 100 ml @ 100 mls/hr ONCE ONCE IVPB 06/22/16 23:43 06/23/16 00:42 DC 06/22/16 23:51 100 MLS/HR Ranitidine HCl (Zantac) 150 mg BID PO 06/23/16 09:00 Tramadol HCl (Ultram) 50 mg BID PO 06/23/16 09:00 PROCEDURE: XR Chest. CLINICAL INDICATION: Shortness of breath. TECHNIQUE: Portable AP semi erect view of the chest was obtained. COMPARISON: 05/28/2016 FINDINGS: The cardiomediastinal silhouette is within normal limits. New left lower lobe infiltrate is unable to exclude pneumonia, the right lung is clear. There is no evidence for pleural effusion, pneumothorax or pulmonary vascular congestion. The osseous structures are intact with no evidence for acute abnormality. RPTAT:HJJR IMPRESSION: New left lower lobe infiltrate compared to 05/28/2016 cannot exclude pneumonia in the proper clinical setting. Correlation with cough and fever is recommended. Jose Miguel Boone, Physician Date Time Electronically viewed and signed by Jose Miguel Boone Physician on 06/22/2016 23:19 JR/ I reviewed EKG Rate: tachycardia Rhythm: sinus Note: No ST elevation or depressions noted concerning for acute ischemic event. LAZ MOORE Jun 23, 2016 04:16
[2016-06-23] MEDS ORDERED: ALBUTEROL/IPRATROPIUM (NEB) 3 ML AMP HHN PRN (04:30)
[2016-06-23 04:42] VITALS: BP 128/66; PULSE 96; RESP 20
[2016-06-23] MEDS: ALBUTEROL/IPRATROPIUM (NEB) 3 ML AMP HHN SCH ×5 (05:07→19:57)
[2016-06-23] MEDS: CEFTRIAXONE 1 GM/50 ML (PMX) 50 ML IVPB SCH (05:27)
[2016-06-23 05:40] LABS: POTASSIUM 3.6 mmol/L (3.5-5.1)
[2016-06-23 05:42] LABS: CREATININE 0.74 mg/dl (0.44-1.00)
[2016-06-23 05:43] LABS: CHOL/HDL RATIO 3.2 RATIO
[2016-06-23 05:50] LABS: HEMATOCRIT 32.7 % (37.0-47.0); HEMOGLOBIN 11.3 g/dl (12.0-16.0); LYMPHOCYTES # 0.5 10^3/ul (0.8-2.9); LYMPHOCYTES % 3.8 % (15.0-51.0); MEAN CORPUSCULAR HEMOGLOBIN 31.6 pg (29.0-33.0); MEAN CORPUSCULAR HGB CONC 34.6 g/dl (32.0-37.0); MEAN CORPUSCULAR VOLUME 91.5 fl (82.0-101.0); MEAN PLATELET VOLUME 7.6 fl (7.4-10.4); MONOCYTE # 0.2 10^3/ul (0.3-0.9); MONOCYTES % 1.2 % (0.0-11.0); NEUTROPHIL # 13.4 10^3/ul (1.6-7.5); PLATELET COUNT 328 10^3/UL (140-440); RED BLOOD COUNT 3.58 10^6/ul (4.20-5.40); RED CELL DISTRIBUTION WIDTH 13.1 % (11.5-14.5); UNCORRECTED WBC 14.1 10^3/ul (4.8-10.8); WHITE BLOOD COUNT 14.1 10^3/ul (4.8-10.8)
[2016-06-23 05:54] LABS: CONDITION 1; LH ANALYZER COMMENTS 1
[2016-06-23] MEDS: AZITHROMYCIN 500MG/NS (PMX) 250 ML IVPB SCH (05:59)
[2016-06-23 07:46] LABS: IRON 12 ug/dl (35-150)
[2016-06-23 07:47] VITALS: BP 113/63; RESP 18
[2016-06-23 07:56] LABS: TOTAL IRON BINDING CAPACITY 245 ug/dl (241-421)
[2016-06-23] MEDS: DOCUSATE SODIUM 100 MG CAP PO SCH ×2 (08:47→21:12)
[2016-06-23] MEDS: RANITIDINE 150 MG TAB PO SCH ×2 (08:47→21:12)
[2016-06-23] MEDS: traMADol 50 MG TAB PO SCH ×2 (08:48→21:12)
[2016-06-23 11:34] VITALS: BP 113/63; RESP 20
[2016-06-23] MEDS: FERROUS SULFATE (EC) 325 MG TAB PO SCH (14:18)
[2016-06-23] MEDS: ACETAMINOPHEN 325 MG TAB PO PRN (14:22)
[2016-06-23 19:30] VITALS: BP 127/65; RESP 20
[2016-06-24] MEDS: ALBUTEROL/IPRATROPIUM (NEB) 3 ML AMP HHN SCH ×2 (01:07→04:55)
[2016-06-24] MEDS: CEFTRIAXONE 1 GM/50 ML (PMX) 50 ML IVPB SCH (05:10)
[2016-06-24] MEDS: AZITHROMYCIN 500MG/NS (PMX) 250 ML IVPB SCH (05:41)
[2016-06-24 06:07] LABS: HEMATOCRIT 30.7 % (37.0-47.0); HEMOGLOBIN 10.5 g/dl (12.0-16.0); LYMPHOCYTES # 1.6 10^3/ul (0.8-2.9); LYMPHOCYTES % 8.1 % (15.0-51.0); MEAN CORPUSCULAR HEMOGLOBIN 31.4 pg (29.0-33.0); MEAN CORPUSCULAR HGB CONC 34.1 g/dl (32.0-37.0); MEAN CORPUSCULAR VOLUME 92.1 fl (82.0-101.0); MEAN PLATELET VOLUME 7.3 fl (7.4-10.4); MONOCYTE # 1.2 10^3/ul (0.3-0.9); MONOCYTES % 5.9 % (0.0-11.0); NEUTROPHIL # 17.3 10^3/ul (1.6-7.5); PLATELET COUNT 377 10^3/UL (140-440); RED BLOOD COUNT 3.34 10^6/ul (4.20-5.40); RED CELL DISTRIBUTION WIDTH 13.2 % (11.5-14.5); UNCORRECTED WBC 20.1 10^3/ul (4.8-10.8); WHITE BLOOD COUNT 20.1 10^3/ul (4.8-10.8)
[2016-06-24 06:35] LABS: CONDITION 1; LH ANALYZER COMMENTS 1
[2016-06-24 07:08] LABS: POTASSIUM 3.8 mmol/L (3.5-5.1)
[2016-06-24 07:10] LABS: CREATININE 0.62 mg/dl (0.44-1.00)
[2016-06-24 07:11] LABS: CALCIUM 8.7 mg/dl (8.4-10.2)
[2016-06-24 07:24] VITALS: BP 125/69; RESP 18
[2016-06-24] MEDS: DOCUSATE SODIUM 100 MG CAP PO SCH ×2 (09:11→20:56)
[2016-06-24] MEDS: RANITIDINE 150 MG TAB PO SCH ×2 (09:11→20:56)
[2016-06-24] MEDS: FERROUS SULFATE (EC) 325 MG TAB PO SCH (09:11)
[2016-06-24] MEDS: traMADol 50 MG TAB PO SCH ×2 (09:11→20:57)
[2016-06-24] MEDS ORDERED: VANCOMYCIN IV PER PHARMACY XX SCH (11:00)
--- NOTE | 2016-06-24 11:23 | PN ---
Date/Time of Note Date/Time of Note DATE: 06/24/16 TIME: 11:19 Assessment/Plan VTE Prophylaxis VTE Prophylaxis Intervention: ambulation Lines/Catheters IV Catheter Type (from Nrsg): Dee Central line still needed: No Assessment/Plan Assessment/Plan 65 yo F who presented with cough and fever managed for 1. Sepsis 2/2 #2 - continue to broaden antibiotics for worsening leukocytosis - will de-escalate once down trending 2. Left upper lobe pneumonia - see #1 3. Mild COPD exacerbation - prn duonebs 4. Previous heavy tobacco use - monitor changes 5. Chronic depression - SSRI 6. Chronic Osteoporosis - calcium supplementation 7. Chronic GERD - ppi 8. Hyperglycemia - reactive - will check hgba1c - if elevated - start oral hypoglycemics and diabetic teaching dispo - f/u labs, monitor acute changes, as per clinical course. this progress note took greater than 40 minutes to complete Subjective 24 Hr Interval Summary Free Text/Dictation Patient denies any fevers/chills or cough. She wants to go home. I spoke to her in regards to her care plan. She has worsening leukocytosis and understands that once downtrending, then we can discharge her home. 15 minutes spent. Exam/Review of Systems Vital Signs Vitals Vital Signs Date Time Temp Pulse Resp B/P Pulse Ox O2 Delivery O2 Flow Rate FiO2 06/24/16 07:24 97.7 82 18 125/69 92 06/24/16 04:56 21 06/23/16 20:00 Nasal Cannula Intake and Output 06/23/16 06/23/16 06/24/16 15:00 23:00 07:00 Intake Total 1060 ml 250 ml Output Total 800 ml Balance 260 ml 250 ml Exam Gen Ojnas: NAD, AAOx4 HEENT: NC/AT, PERRLA, EOMI, no pharyngeal erythema, no tonsillar exudates, no lymphadenopathy, no JVD, no carotid bruits NECK: supple, no thyromegaly THORAX: symmetrical, no obvious deformities CV: S1S2, RRR, no M/G/R Lungs: CTAB no W/C/R/R - improved aeration to the bases Abd: soft, NT/ND, +BS, no rebound, no guarding, neg HSM EXT: no edema, no ecchymosis, no clubbing, FROM Neuro: CN II-XII grossly intact, no focal deficits Psych: good mentation, alert and oriented, good mood and affect Skin: C/D/I Results Result Diagram: 06/24/16 0525 06/24/16 0520 Results 24 hrs Laboratory Tests Test 06/24/16 05:20 06/24/16 05:25 Anion Gap 16 # Blood Urea Nitrogen 11 Calcium Level 8.7 Carbon Dioxide Level 25 Chloride Level 107 Creatinine 0.62 Glucose Level 118 # Potassium Level 3.8 Sodium Level 144 Basophils # 0.0 Basophils % 0.0 Blood Morphology Comment Eosinophils # 0.0 Eosinophils % 0.0 Hematocrit 30.7 L Hemoglobin 10.5 L Lymphocytes # 1.6 Lymphocytes % 8.1 L Mean Corpuscular Hemoglobin 31.4 Mean Corpuscular Hemoglobin Concent 34.1 Mean Corpuscular Volume 92.1 Mean Platelet Volume 7.3 L Monocytes # 1.2 H Monocytes % 5.9 Neutrophils # 17.3 H Neutrophils % 86.0 H Nucleated Red Blood Cells # 0.0 Nucleated Red Blood Cells % 0.0 Platelet Count 377 Red Blood Count 3.34 L Red Cell Distribution Width 13.2 White Blood Count 20.1 #H Medications Medications Current Medications Ranitidine HCl (Zantac) 150 mg BID PO Last administered on 06/24/16 09:11; Admin Dose 150 MG; Start 06/23/16 at 09:00 Tramadol HCl (Ultram) 50 mg BID PO Last administered on 06/24/16 09:11; Admin Dose 50 MG; Start 06/23/16 at 09:00 Acetaminophen (Tylenol Tab) 650 mg Q6H PRN PO PAIN AND OR ELEVATED TEMP Last administered on 06/23/16 14:22; Admin Dose 650 MG; Start 06/23/16 at 04:30 Docusate Sodium (Colace) 100 mg BID PO Last administered on 06/24/16 09:11; Admin Dose 100 MG; Start 06/23/16 at 09:00 Ferrous Sulfate 325 mg 325 mg DAILY PO Last administered on 06/24/16 09:11; Admin Dose 325 MG; Start 06/23/16 at 11:30 Cefepime HCl 50 ml @ 100 mls/hr Q12 IVPB ; Start 06/24/16 at 21:00 Vancomycin HCl 250 ml @ 125 mls/hr ONCE ONCE IVPB ; Start 06/24/16 at 12:00; Stop 06/24/16 at 13:59 Vancomycin HCl/ Sodium Chloride (Vancocin/NS) 150 ml @ 75 mls/hr Q12H IVPB ; Start 06/25/16 at 00:00 ANGUS WORTHY MD Jun 24, 2016 11:23
[2016-06-24] MEDS ORDERED: VANCOMYCIN 1 GM in NS 250 ML IVPB ONE (12:00)
[2016-06-24 20:28] VITALS: BP 153/73; RESP 20
[2016-06-24] MEDS: CEFEPIME 1GM/50 ML (PMX) 50 ML IVPB SCH (20:57)
[2016-06-25] MEDS ORDERED: VANCOMYCIN 750 MG in SOD CHLORIDE 0.9% 150 ML IVPB SCH ×2
[2016-06-25] MEDS: VANCOMYCIN 500MG/NS (PMX) 100 ML IVPB SCH ×2 (00:31→12:12)
[2016-06-25 05:56] LABS: ADD SCAN DIFF NO
[2016-06-25 05:58] LABS: BASOPHILS % 0.2 % (0.0-2.0); EOSINOPHILS % 0.3 % (0.0-7.0); HEMATOCRIT 32.9 % (37.0-47.0); HEMOGLOBIN 10.7 g/dl (12.0-16.0); LYMPHOCYTES # 2.6 10^3/ul (0.8-2.9); LYMPHOCYTES % 18.4 % (15.0-51.0); MEAN CORPUSCULAR HEMOGLOBIN 30.4 pg (29.0-33.0); MEAN CORPUSCULAR HGB CONC 32.5 g/dl (32.0-37.0); MEAN CORPUSCULAR VOLUME 93.5 fl (82.0-101.0); MONOCYTE # 1.3 10^3/ul (0.3-0.9); MONOCYTES % 8.9 % (0.0-11.0); NEUTROPHIL # 9.8 10^3/ul (1.6-7.5); NEUTROPHILS % 69.3 % (39.0-77.0); PLATELET COUNT 420 10^3/UL (140-415); RED BLOOD COUNT 3.52 10^6/ul (4.20-5.40); WHITE BLOOD COUNT 14.1 10^3/ul (4.8-10.8)
[2016-06-25 06:29] LABS: POTASSIUM 3.7 mmol/L (3.5-5.1)
[2016-06-25 06:32] LABS: CREATININE 0.66 mg/dl (0.44-1.00)
[2016-06-25 06:33] LABS: CALCIUM 8.6 mg/dl (8.4-10.2)
[2016-06-25] MEDS ORDERED: ONDANSETRON 4 MG INJ IV PRN (07:30)
[2016-06-25 08:31] VITALS: BP 160/77; RESP 16
[2016-06-25] MEDS: FERROUS SULFATE (EC) 325 MG TAB PO SCH (08:56)
[2016-06-25] MEDS: DOCUSATE SODIUM 100 MG CAP PO SCH (08:56)
[2016-06-25] MEDS: RANITIDINE 150 MG TAB PO SCH (08:56)
[2016-06-25] MEDS: traMADol 50 MG TAB PO SCH (09:00)
[2016-06-25] MEDS: ACETAMINOPHEN 325 MG TAB PO PRN (09:02)
[2016-06-25] MEDS: CEFEPIME 1GM/50 ML (PMX) 50 ML IVPB SCH (09:06)
[2016-06-25] MEDS ORDERED: LEVO500T72 PO (12:29)
--- NOTE | 2016-06-25 12:30 | PDOCDIS ---
Discharge Instructions DIAGNOSIS Discharge Diagnosis: Pneumonia CONDITION Patient Condition: Stable HOME CARE INSTRUCTIONS: Special Diet: REGULAR ACTIVITY: Activity Restrictions: Slowly Increase Activity Rest between Activity Avoid heavy lifting FOLLOW UP/APPOINTMENTS Appointments follow up with primary care physician in one week. OTHER ORDERS: Other Orders: Pneumonia - continue to take the levaquin 500 mg by mouth once a day for the next 10 days. ANGUS WORTHY MD Jun 25, 2016 12:30
[2016-06-25] MEDS ORDERED: FER325 PO (13:20)
--- NOTE | 2016-06-25 13:40 | DS ---
DATE OF ADMISSION: 06/23/2016 DATE OF DISCHARGE: 06/25/2016 DISCHARGE DIAGNOSES: 1. Sepsis secondary to left lower lobe pneumonia, improving. 2. Mild chronic obstructive pulmonary disease exacerbation. 3. Previous heavy tobacco use. 4. Chronic depression. 5. Chronic osteoporosis. 6. Chronic gastroesophageal reflux disease. 7. Hyperglycemia, reactive. HOSPITAL COURSE: This is a 65-year-old female with a past medical history of having cough for the last 7 days. She says that she has had also greenish sputum at this time. Subsequently, she was admitted to med/surg for further evaluation and treatment. Initial chest x-ray had shown new left lower lobe infiltrate compared to 05/28/2016, cannot exclude pneumonia in the proper clinical setting. Correlation with cough and fever is recommended. Initial laboratory findings showed iron 12, TIBC 244, iron percent saturation at 5. Lactic acid 2.5 had gone up and went down. It was originally normal. Triglycerides 79, cholesterol of 176, LDL 106. Hematology with WBCs were 14.7, went up to 20.1, currently 14.1, H and H has been stable 11.6 and 34.4, platelets of 323. Currently, 10.7 and 32.9 with platelets of 420, otherwise, no other changes. Microbiology was negative. Blood cultures influenza A and B were negative as well. Spoke to the patient about the care plan and agreed with the care plan at this time. DISPOSITION: Home. CONDITION: Stable. DISCHARGE MEDICATIONS: Will include: 1. Levaquin 500 mg p.o. daily. 2. Mucinex 1 tab p.o. q.12h. 3. Sertraline 25 mg p.o. daily. 4. Tramadol 50 mg p.o. b.i.d. FOLLOWUP: The patient will followup with the primary care physician within a week and will follow up as needed thereafter. Patient agreed with the plan. Coordination of discharge greater than 35 minutes. Dictated By: ANGUS ROJAS/SCOTT Conf#: [id number] DID#: [id number]
[2016-06-25 15:10] VITALS: BP 159/85; PULSE 67; RESP 20
== END 2016-06-25 16:19 | disposition home or self-care (01) | DRG 871 ==
LOC: E/R 21:21 → PP2 06-23 00:48
PROVIDERS: ADMIT Family Medicine; ATTEND Family Medicine
DX: A41.9 Sepsis, unspecified organism (principal); J18.9 Pneumonia, unspecified organism; J44.1 Chronic obstructive pulmonary disease with (acute) exacerbation; F32.9 Major depressive disorder, single episode, unspecified; M81.0 Age-related osteoporosis without current pathological fracture; K21.9 Gastro-esophageal reflux disease without esophagitis; R73.9 Hyperglycemia, unspecified; Z87.891 Personal history of nicotine dependence
CPT/HCPCS: 36415; 71010; 80048; 80053; 80061; 83036; 83540; 83605; 83880; 84484; 85025; 87040; 87400; 93005; 94640; 94664; 96374; 96375; J0456; J0692; J0696; J1956; J2405; J2930; J3370

== ENCOUNTER 2018-09-14 11:42 | Emergency (ER) | payer OTHER ==
[~2018-09-14] VITALS: Ht 167.6 cm; Wt 41.6 kg
[~2018-09-14 11:42] MED LIST changes: -ALEN70TA30 PO; -CIPR500T4 PO; +FER325 PO; +LEVO500T48 PO; +[UNRECOGNIZED DRUG - CODE] PO
[2018-09-14 11:45] VITALS: Ht 167.6 cm; Wt 41.6 kg
[2018-09-14] MEDS ORDERED: SOD CHLORIDE 0.9% 1,000 ML IV STA (16:24)
[2018-09-14] MEDS ORDERED: ONDANSETRON 4 MG INJ IV STA (16:24)
[2018-09-14] MEDS ORDERED: KETOROLAC 30 MG INJ IV STA (16:24)
[2018-09-14] MEDS ORDERED: morphine 4 MG/ML VIAL IV STA (16:24)
[2018-09-14] MEDS ORDERED: DIPHENOXYLATE/ATROPINE TAB PO ONE (16:30)
[2018-09-14] MEDS ORDERED: TRAM50TA PO (16:33)
[2018-09-14] MEDS ORDERED: RANI150T5 PO (16:35)
[2018-09-14] MEDS ORDERED: DIPH1TAB PO (18:32)
[2018-09-14] MEDS ORDERED: ONDA4TAB14 PO (18:32)
--- NOTE | 2018-09-14 19:44 | ERD ---
ER Documentation Chief Complaint Chief Complaint Complains of abdominal x3 days HPI This is a very pleasant 67 old female with a history of fibromyalgia. The patient indicates for the past 3 days she has had multiple episodes of nonbloody nonbilious emesis and loose watery stools. She indicated there is been no blood in her stool. She had severe abdominal cramping. Her symptoms improved slightly yesterday but again today she had another episode of nonbloody nonbilious emesis. She said no fevers or shaking or chills. She denies any recent travel or prolonged immobilization. No shortness of breath at rest or exertion. The patient indicates the abdominal cramping is just prior to when she has a loose watery stool ROS All systems reviewed and are negative except as per history of present illness. Medications Home Meds Active Scripts Diphenoxylate HCl/Atropine (Lomotil 2.5-0.025 mg Tablet) 1 Each Tablet, 1 TAB PO QID PRN for DIARRHEA, #10 TAB Prov:DEISY POST MD 09/14/18 Ondansetron (Ondansetron Odt) 4 Mg Tab.rapdis, 4 MG PO Q6H PRN for NAUSEA AND/OR VOMITING, #20 TAB Prov:DEISY POST MD 09/14/18 Reported Medications Ranitidine Hcl* (Ranitidine Hcl*) 150 Mg Tablet, 300 MG PO HS, #30 TAB 09/14/18 Tramadol Hcl* (Ultram*) 50 Mg Tablet, 50 MG PO BID PRN for PAIN, TAB 09/14/18 Discontinued Reported Medications [id number] (Mucinex Fast-Max Cold-Flu) 1 Each Tablet, 2 TAB PO Q12, TAB 06/22/16 Sertraline Hcl* (Sertraline Hcl*) 25 Mg Tablet, 25 MG PO DAILY, #30 08/08/15 Tramadol HCl (Tramadol HCl) 50 Mg Tablet, 50 MG PO BID, #60 08/08/15 Discontinued Scripts Ferrous Sulfate* (Ferrous Sulfate*) 325 Mg Tabec, 325 MG PO DAILY for 60 Days, TAB Prov:ANGUS WORTHY MD 06/25/16 Levofloxacin* (Levaquin*) 500 Mg Tablet, 500 MG PO DAILY for 10 Days, TAB Prov:ANGUS WORTHY MD 06/25/16 Allergies Allergies: Coded Allergies: famotidine (Verified Allergy, Mild, body aches, 09/14/18) Penicillins (Verified Allergy, Unknown, 09/14/18) PMhx/Soc History of Surgery: Yes (caesarian section) Anesthesia Reaction: No Hx Neurological Disorder: No Hx Respiratory Disorders: Yes (PNEUMONIA) Hx Cardiac Disorders: No Hx Psychiatric Problems: No Hx Miscellaneous Medical Probl: Yes (Fibromyalgia) Hx Alcohol Use: Yes (SOMETIMES) Hx Substance Use: No Hx Tobacco Use: Yes (Quit in 2014) Smoking Status: Former smoker Physical Exam Vitals Vital Signs Date Temp Pulse Resp B/P (MAP) Pulse Ox O2 O2 Flow FiO2 Time Delivery Rate 09/14/18 72 16 100 Room Air 17:30 09/14/18 99.3 78 20 154/76 98 11:45 (102) Physical Exam Constitutional:Well-developed. Well-nourished. HEENT:Normocephalic. Atraumatic.Pupils were equal round reactive to light. Dry mucous membranes.No tonsillar exudates. Neck: No nuchal rigidity. No lymphadenopathy. No posterior cervical spine tenderness or step-offs. Respiratory: Not using accessory muscles of respiration.Lungs were clear to auscultation bilaterally. No rhonchi. No rales. No wheezing. Cardiovascular: Regular rate regular rhythm.No murmurs. No rubs were appreciated.S1, S2 normal. Distal pulses are palpable 2+ bilaterally. GI: Abdomen was soft. Nontender. Non Distended. No pulsatile abdominal masses or bruits. No rebound. No guarding. Bowel sounds were present and normal. Muscle skeletal: Full range of motion of both the upper and lower extremities bilaterally.Normal muscle tone.No assymetrical calf tenderness or swelling. Skin: No petechia, no purpura. No lesions on the palms or the soles of the feet. No maculopapular rash. NEURO: Patient was alert, awake, orientated x3.No facial droop. Gait observed and normal with no ataxia.Speech had regular rate and rhythm. No focal neurological deficits. Result Diagram: 09/14/18 1648 09/14/18 1648 Results 24 hrs Laboratory Tests Test 09/14/18 16:48 09/14/18 19:18 White Blood Count 6.2 10^3/ul Red Blood Count 4.13 10^6/ul Hemoglobin 12.4 g/dl Hematocrit 38.0 % Mean Corpuscular Volume 92.0 fl Mean Corpuscular Hemoglobin 30.0 pg Mean Corpuscular Hemoglobin Concent 32.6 g/dl Red Cell Distribution Width 13.0 % Platelet Count 351 10^3/UL Mean Platelet Volume 8.6 fl Immature Granulocytes % 0.300 % Neutrophils % 62.5 % Lymphocytes % 28.7 % Monocytes % 7.4 % Eosinophils % 0.5 % Basophils % 0.6 % Nucleated Red Blood Cells % 0.0 /100WBC Immature Granulocytes # 0.020 10^3/ul Neutrophils # 3.9 10^3/ul Lymphocytes # 1.8 10^3/ul Monocytes # 0.5 10^3/ul Eosinophils # 0.0 10^3/ul Basophils # 0.0 10^3/ul Nucleated Red Blood Cells # 0.0 10^3/ul Sodium Level 140 mmol/L Potassium Level 3.7 mmol/L Chloride Level 106 mmol/L Carbon Dioxide Level 23 mmol/L Anion Gap 11 Blood Urea Nitrogen 9 mg/dl Creatinine 0.67 mg/dl Est Glomerular Filtrat Rate mL/min > 60 mL/min Glucose Level 87 mg/dl Calcium Level 9.3 mg/dl Total Bilirubin 0.5 mg/dl Direct Bilirubin 0.00 mg/dl Indirect Bilirubin 0.5 mg/dl Aspartate Amino Transf (AST/SGOT) 29 IU/L Alanine Aminotransferase (ALT/SGPT) 18 IU/L Alkaline Phosphatase 83 IU/L Total Protein 8.2 g/dl Albumin 4.8 g/dl Globulin 3.40 g/dl Albumin/Globulin Ratio 1.41 Amylase Level 102 U/L Lipase 137 U/L Urine Color COLORLESS Urine Clarity CLEAR Urine pH 6.0 Urine Specific [place] 1.002 Urine Ketones NEGATIVE mg/dL Urine Nitrite NEGATIVE mg/dL Urine Bilirubin NEGATIVE mg/dL Urine Urobilinogen NEGATIVE mg/dL Urine Leukocyte Esterase NEGATIVE Kristal/ul Urine Microscopic RBC 2 /HPF Urine Microscopic WBC 0 /HPF Urine Hemoglobin 2+ mg/dL Urine Glucose NEGATIVE mg/dL Urine Total Protein NEGATIVE mg/dl Current Medications Medications Dose Sig/Sabine Start Time Status Last (Trade) Ordered Route PRN Stop Time Admin Dose Reason Admin Sodium 1,000 ml @ Q1H STAT 09/14/18 DC 09/14/18 Chloride 1,000 mls/hr IV 16:24 09/14/18 17:01 17:23 Morphine 4 mg ONCE STAT 09/14/18 DC 09/14/18 Sulfate IV 16:24 09/14/18 17:01 (morphine) 16:33 Ondansetron 4 mg ONCE STAT 09/14/18 DC 09/14/18 HCl (Zofran IV 16:24 09/14/18 17:01 Inj) 16:33 Ketorolac 30 mg ONCE STAT 09/14/18 DC 09/14/18 Tromethamine IV 16:24 09/14/18 17:01 (Toradol) 16:33 1 tab ONCE ONCE 09/14/18 DC 09/14/18 Diphenoxylate PO 16:30 09/14/18 17:10 HCl/ 16:33 Atropine (Lomotil) Procedures/MDM This patient presented to the emergency department with abdominal pain and was seen and evaluated by myself. My differential diagnosis included but was not limited to abdominal aortic aneurysm, appendicitis, pancreatitis, perforated peptic ulcer, perforated viscus, Boerhaaves syndrome or visceral pain such as diverticulitis, DKA, esophagitis, hepatitis or bowel obstruction. The patient was placed on a quality assurance monitor final, continuous pulse oximetry, and IV access was established by nursing staff. The patient showed signs of clinical dehydration. She was given IV fluids. She was given IV Zofran. Patient was also given Lomotil as I did feel her physical exam findings likely result of a viral etiology from enteritis. The patient had an abdominal x-ray that showed a nonobstructive bowel gas pattern. She had no leukocytosis. She had no severe left leg abnormalities. I obtained a 12-lead EKG tracing to rule out for atypical microinfarction. 12 Lead EKG tracing ordered and reviewed by myself showed: Normal sinus rhythm of 66 bpm and no arrhythmia. OH interval normal. QRS duration normal. No ST segment elevation No ST segment depression. No changes consistent with acute ischemia. Observation Note: Time: 6 hours Family Hx: No Hypertension Evaluation: Multiple exams showed improving symptoms and no evidence of worsening of her symptoms that she was able to tolerate oral intake Departure Diagnosis: Primary Impression: Nausea vomiting and diarrhea Condition: Fair Patient Instructions: Vomiting And Diarrhea, Nonspecific (Adult) DEISY POST MD September 14, 2018 19:44
[2018-09-14 19:49] VITALS: BP 142/75; PULSE 71; RESP 19
== END 2018-09-14 19:49 | disposition home or self-care (01) ==
LOC: E/R 11:42
DX: R11.2 Nausea with vomiting, unspecified (principal); R19.7 Diarrhea, unspecified; Z87.891 Personal history of nicotine dependence
CPT/HCPCS: 36415; 74018; 80053; 81001; 82150; 83690; 85025; 87086; 93005; 96361; 96374; 96375; 99285; J1885; J2270; J2405; J7030